=== PATIENT | female | born 1985 | race Caucasian/White ===

== ENCOUNTER → 2020-10-03 01:20 | Outpatient (CLI) | payer OTHER ==
[~2020-10-03 01:20] MED LIST: IBUPROFEN800 MG; PRENAVITE1 TAB PO; TYLENOL W/CODEI1 TAB PO
[2020-10-03 02:43] LABS: HEMATOCRIT 40.3 % (36.0-48.0); HEMOGLOBIN 13.6 g/dL (12-16); MCH 32.9 pg (26.0-34.0); MCHC 33.7 g/dL (31.0-37.0); MCV 97.6 fL (80.0-100.0); MEAN PLATELET VOLUME 10.2 fL (7.4-10.4); RBC 4.13 10x6/uL (4.00-5.40); RDW 12.9 % (11.5-14.5); WBC 7.9 10x3/uL (4.8-10.8)
[2020-10-03 02:52] LABS: BILIRUBIN NEGATIVE (NEGATIVE); KETONE NEGATIVE (NEGATIVE); NITRITE NEGATIVE (NEGATIVE); UDS - AMPHET NEGATIVE QUAL (NEGATIVE); UDS - BARB NEGATIVE QUAL (NEGATIVE); UDS - BENZO NEGATIVE QUAL (NEGATIVE); UDS - COCAINE NEGATIVE QUAL (NEGATIVE); UDS - OPIATE NEGATIVE QUAL (NEGATIVE); UDS - PCP NEGATIVE QUAL (NEGATIVE); UDS - THC NEGATIVE QUAL (NEGATIVE); UROBILINOGEN NORMAL mg/dL (< 2)
[2020-10-05 08:13] LABS: RAPID PLASMA REAGIN Non Reactive (Non Reactive)
== END | disposition home or self-care (01) ==
LOC: D.LDO 01:20
PROVIDERS: Obstetrics & Gynecology
DX: O26.893 Other specified pregnancy related conditions, third trimester (principal); Z3A.39 39 weeks gestation of pregnancy

== ENCOUNTER 2020-10-03 01:48 | Inpatient (IN) | payer OTHER ==
[2020-10-03] MEDS ORDERED: PRENAVITE1 TAB PO (02:27)
[2020-10-04 06:31] LABS: HEMATOCRIT 37.4 % (36.0-48.0); HEMOGLOBIN 12.3 g/dL (12-16); MCH 32.4 pg (26.0-34.0); MCHC 32.9 g/dL (31.0-37.0); MCV 98.4 fL (80.0-100.0); MEAN PLATELET VOLUME 9.4 fL (7.4-10.4); RBC 3.8 10x6/uL (4.00-5.40); RDW 13.3 % (11.5-14.5); WBC 8.4 10x3/uL (4.8-10.8)
--- NOTE | 2020-10-04 07:44 | NUR ---
THIS RN TO ROOM FOR PT CHECK. PT SITTING UP IN BED, . PT RATES PAIN 1/10, DENIES HEAVY LOCHIA OR CLOTS. PT MUGS REFILLED WITH ICE WATER PER REQUEST. PT STATES SHE WOULD LIKE TO SHOWER TODAY. SHOWER SUPPLIES PROVIDED IN BR WELL. PT DENIES FURTHER NEEDS. PT INSTRUCTED TO CALL FOR ANY NEEDS AND WILL RETURN FOR VS AND SHIFT ASSESSMENT WHEN SHE IS FINISHED . UNDERSTANDING VERBALIZED. SRUx2. CL IN REACH.
--- NOTE | 2020-10-04 09:50 | NUR ---
THIS RN TO ROOM FOR SHIFT ASSESSMENT. PT UP TO BR, GETTING IN SHOWER. DENIES FEELING DIZZY OR ANY NEEDS. INSTRUCTED TO USE PULL CORD IN BR IF IN NEED OF ASSIST. PT VERBALIZES UNDERSTANDING. BED PADS CHANGED. WILL RETURN FOR ASSESSMENT AFTER PT IS OUT OF SHOWER.
--- NOTE | 2020-10-04 12:10 | NUR ---
THIS RN TO ROOM FOR SHIFT ASSESSMENT. VSS, SHIFT ASSESSMENT COMPLETE, SEE FLOWSHEET FOR DOC. PT DENIES HEAVY LOCHIA BUT REPORTS PASSING A "PRETTY LARGE" CLOT EARLIER TODAY. FF, ML, U/U. SMALL RUBRA LOCHIA, NO CLOTS EXPELLED WITH MASSAGE. REINFORCED TO PT S/S TO REPORT REGARDING LOCHIA AND CLOTS, UNDERSTANDING VERBALIZED. 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 LE ASSESSED AND NOTED TO HAVE DISPERSE BULGING VARICOSE VEINS. BOTH LE ARE TENDER, RED, AND WARM TO TOUCH ALONG FRONT OF LEGS AT BULGING VEIN SITE. WILL NOTIFY DR CLARK. PT DENIES PAIN AT THIS TIME, REQUESTS PERIPADS. PERIPADS PROVIDED, PT DENIES FURTHER NEEDS. SRUX2, CL IN REACH. RESTING IN [place] AT BEDSIDE.
--- NOTE | 2020-10-04 12:18 | NUR ---
DR CLARK NOTIFIED OF ASSESSMENT OF LE, ORDER RECEIVED FOR BILATERAL VENOUS DOPPLERS OF LE AND WILL COME SEE PT SHORTLY.
--- NOTE | 2020-10-04 12:45 | NUR ---
U/S STAFF TO ROOM FOR VENOUS DOPPLERS.
--- NOTE | 2020-10-04 15:05 | NUR ---
THIS RN TO ROOM FOR PT CHECK. PT SITTING UP IN BED, . PT STATES DR CLARK ROUNDED AND SAW HER. PT DENIES PAIN OR ANY NEEDS. FRESH ICE WATER GIVEN. SRUx2, CL IN REACH.
--- NOTE | 2020-10-04 16:15 | NUR ---
DR CLARK PHONES UNIT, [facility] CALLED REPORT TO HIM ON BILAT VENOUS DOPPLERS. ORDER RECEIVED FOR 10MG TORADOL PO Q6H SCHEDULED, TYLENOL #3 PO, 1 TAB Q4H PRN MILD TO MOD PAIN, OR 2 TABS Q4HPRN MOD TO SEVERE PAIN. ORDER ALSO RECEIVED FOR PT TO DO WARM COMPRESSES OFTEN TOLERABLE. WILL PROCEED ORDERED.
--- NOTE | 2020-10-04 17:38 | NUR ---
THIS RN TO ROOM FOR PT CHECK AND AUDIOPROSTHOLOGIST. PT SITTING UP IN BED, . PT ADMIN TORADOL ORDERED, SEE EMAR FOR DOC. WARM COMPRESSES PLACES TO LE BILAT ORDERED. PT DENIES PAIN. POC DISCUSSED, PT VERBALIZES UNDERSTANDING AND DENIES NEEDS. LEFT WRIST/FA PIV REMOVED PER PT REQUEST AND NOTED TO BE RED AND TENDER. PRESSURE HELD AND BANDAID APPLIED. PT MIKY WELL.
[2020-10-04 19:30] VITALS: BP 125/80
--- NOTE | 2020-10-04 19:30 | NUR ---
ASSESSMENT PER FLOW SHEET, VS OBTAINED, FF, ML, U/1, PT REPORTS SMALL BLEEDING WITH A COUPLE OF PEA SIZE CLOTS EARLIER IN THE DAY, PT REPORTS FLATUS, BM TODAY, AND VOIDING WITH NO DIFFICULTY, USING NEO CARE INST, PT DENIES NEEDS OR PAIN AT THIS TIME
--- NOTE | 2020-10-04 20:20 | NUR ---
PT HOLDING INFANT, PT REQUESTED AND SERVED FRESH H20 AND VANILLA PUDDING, DENIES FURTHER NEEDS
--- NOTE | 2020-10-04 21:09 | NUR ---
PT HOLDING INFANT, DENIES NEEDS OR PAIN AT THIS TIME
--- NOTE | 2020-10-04 22:00 | NUR ---
PT BREASFEEDING INFANT, NEW HOT PACKS PLACED ON LOWER EXTREMETIES, PT INFORMED THAT HER TORADOL WILL BE DUE AT 11PM, VERBALIZES UNDERSTANDING, DENIES NEEDS AT THIS TIME
--- NOTE | 2020-10-04 23:05 | NUR ---
PT RESTING, AROUSES TO OPENING OF DOOR, ADM TORADOL PER MD ORDERS, SEE EMAR, PT DENIES FURTHER NEEDS, INFANT IN NSY AT THIS TIME
--- NOTE | 2020-10-05 00:05 | NUR ---
PT RESTING WITH EYES CLOSED, RESP QUIET, NO DITRESS NOTED, LEFT UNDISTURBED AT THIS TIME
--- NOTE | 2020-10-05 02:05 | NUR ---
PT AWAKE, PT DENIES NEEDS OR PAIN, IN OPEN CRIB CART AT BEDSIDE
--- NOTE | 2020-10-05 04:30 | NUR ---
PT RESTING WITH EYES CLOSED, RESP QUIET, NO DISTRESS NOTED, LEFT UNDISTURBED AT THIS TIME, IN OPEN CRIB CART AT BEDSIDE
--- NOTE | 2020-10-05 05:21 | NUR ---
PT RESTING WITH EYES CLOSED, AROUSES TO SOFT VERBAL STIMULATION, ADM TORADOL PO PER MD ORDERS, SEE EMAR, PT DENIES FURTHER NEEDS, IN OPEN CRIB CART AT BEDSIDE
--- NOTE | 2020-10-05 06:28 | NUR ---
PT RESTING WITH EYES CLOSED, RESP QUIET, NO DISTRESS NOTED, LEFT UNDISTURBED AT THIS TIME, IN OPEN CRIB CART AT BEDSIDE
--- NOTE | 2020-10-05 08:00 | NUR ---
TO ROOM FOR VS AND ASSESSMENT. SEE FLOWSHEET. PT SITTING UP IN BED FEEDING BABY. NO NEEDS OR CONCERNS VOICED AT THIS TIME.
[2020-10-05 08:03] VITALS: BP 125/81
[2020-10-05] MEDS ORDERED: IBUPROFEN800 MG (09:11)
[2020-10-05] MEDS ORDERED: TYLENOL W/CODEI1 TAB PO (09:12)
--- NOTE | 2020-10-05 13:50 | NUR ---
REVIEWED DISCHARGE INSTRUCTIONS WITH PT. STATES UNDERSTANDING. PRESCRIPTIONS AND FOLLOW UP APPOINTMENT GIVEN FOR 11/15/20 @ 2:45PM WITH DR. ASHRAF. PT DISCHARGE HOME AMBULATORY TO PRIVATE VEHICLE ACCOMPANIED BY THIS NURSE AND PT'S .
== END 2020-10-05 14:15 | disposition home or self-care (01) | DRG 807 ==
LOC: D.LD 01:48
PROVIDERS: ADMIT Obstetrics & Gynecology; ATTEND Obstetrics & Gynecology
PROC: 10E0XZZ Delivery of Products of Conception, External Approach (ICD-10-PCS; principal; 2020-10-03)
PROC: 10907ZC Drainage of Amniotic Fluid, Therapeutic from Products of Conception, Via Natural or Artificial Opening (ICD-10-PCS; 2020-10-03)
DX: O99.824 Streptococcus B carrier state complicating childbirth (principal); Z37.0 Single live birth; Z3A.39 39 weeks gestation of pregnancy; O77.0 Labor and delivery complicated by meconium in amniotic fluid; O75.9 Complication of labor and delivery, unspecified; I80.00 Phlebitis and thrombophlebitis of superficial vessels of unspecified lower extremity